=== PATIENT | female | born 1980 | race Caucasian/White ===

== ENCOUNTER → 2017-07-28 | Outpatient (CLI) | payer BC ==
[2017-07-28 14:08] LABS: HEMOGLOBIN 12.1 gm/dl (12.3-15.3); RED BLOOD COUNT 4.15 M/UL (4.00-5.10); WHITE BLOOD COUNT 10.8 K/UL (4.5-11.0)
[2017-07-28 14:21] LABS: BUN/CREATININE RATIO 11 (0-10)
== END ==
LOC: GENOP 13:14
PROVIDERS: Obstetrics & Gynecology
DX: Z01.812 Encounter for preprocedural laboratory examination (principal); O34.219 Maternal care for unspecified type scar from previous cesarean delivery; Z91.048 Other nonmedicinal substance allergy status
CPT/HCPCS: 36415; 80048; 81001; 85025

== ENCOUNTER → 2021-10-31 | Outpatient (CLI) | payer BC | LOC: KOH-I 14:30 | DX: G43.701 Chronic migraine without aura, not intractable, with status migrainosus (principal) | CPT/HCPCS: 70450 ==